=== PATIENT | male | born 1955 | race Caucasian/White ===

== ENCOUNTER 2019-01-05 12:00 | Emergency (ER) | payer BC ==
[~2019-01-05] VITALS: Ht 182.9 cm; Wt 88.6 kg
[2019-01-05 12:48] VITALS: BP 144/78
[2019-01-05] MEDS ORDERED: CELE-193 PO (14:19)
[2019-01-05] MEDS ORDERED: TRAM50TA2 PO (14:19)
== END 2019-01-05 14:35 | disposition home or self-care (01) ==
LOC: ER 12:01
DX: S80.01XA Contusion of right knee, initial encounter (principal); S80.11XA Contusion of right lower leg, initial encounter; Z88.0 Allergy status to penicillin; Z79.899 Other long term (current) drug therapy; V89.2XXA Person injured in unspecified motor-vehicle accident, traffic, initial encounter; Y93.89 Activity, other specified; Y92.488 Other paved roadways as the place of occurrence of the external cause; Y99.8 Other external cause status
CPT/HCPCS: 73560; 73590; 99283